=== PATIENT | female | born 2000 | race Caucasian/White ===

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

== ENCOUNTER 2022-03-07 07:29 | Emergency (ER) | payer OTHER ==
[~2022-03-07 07:29] MED LIST: QUET25TA5 PO
== END 2022-03-07 07:39 | disposition left against medical advice (07) ==
LOC: ER 07:29
DX: Z53.21 Procedure and treatment not carried out due to patient leaving prior to being seen by health care provider (principal)